=== PATIENT | female | born 1965 | race Native Hawaiian/Other Pacific Islander ===

== ENCOUNTER → 2021-02-17 13:38 | Outpatient (CLI) | payer OTHER, SELFPAY ==
--- NOTE | 2021-02-17 | PATH_ITS ---
Note [facility] Accession Number: [id number] TESTS RESULT FLAG UNITS REF RANGE LAB Clinician Provided Cytology Information No. of containers..00 Previously Prepared Cytology Slide 35 Unknown Storage/container code(s) 01 L UPPER #3 THYROID DIAGNOSIS: 01 LEFT UPPER #3 THYROID NODULE, FINE NEEDLE ASPIRATION. INCONCLUSIVE. BETHESDA CATEGORY III. ATYPIA OF UNDETERMINED SIGNIFICANCE, SEE COMMENT. COMMENT: EXAMINATION OF THE SMEARS REVEALS A MILDLY CELLULAR ASPIRATE, COMPOSED OF COLLOID, MACROPHAGES AND BENIGN FOLLICULAR GROUPS WITH FOCAL HURTHLE CELL CHANGES. IN ADDITION, THERE ARE RARE GROUPS WHERE MILD NUCLEAR ENLARGEMENT, OVERLAPPING, PALLOR AND RARE NUCLEAR MEMBRANE IRREGULARITIES (GROOVES) ARE NOTED. INTRANUCLEAR PSEUDOINCLUSIONS ARE NOT SEEN. THE RISK OF MALIGNANCY IN THE BETHESDA CATEGORY III IS 5-15%. RE-ASPIRATION IS RECOMMENDED. ADDITIONAL MOLECULAR TESTING CAN BE PERFORMED ON THE SUBMITTED RNA VIAL, UPON REQUEST. Pathologist ICD10: 01 E04.2 01 Jarrod Suarez MD, Pathologist NPI- [id number] Faizan Graham, Shanker Out ([facility]) 01 30 CC, COLORLESS, CLEAR Also received 1 RNA vial, 5 quick-stained, 5 alcohol fixed slides, /[facility] 02/18/2021 1046 [facility] FLAG LEGEND: L-Low Normal,H-High Normal,LL-Alert Low,HH-Alert High <-Panic Low,>-Panic High,A-Abnormal,AA-Critical Abnormal Performed at: 01 =Z [facility]ending sale to [facility] [address] [place] [address], [place] [address] Benny Walker MD, Performed at: 01 [facility] [address] [place] [address], [place], [place] [id number] MD Benny Walker MD Phone: [phone]
--- NOTE | 2021-02-17 | PATH_ITS ---
Note [facility] Accession Number: [id number] TESTS RESULT FLAG UNITS REF RANGE LAB Clinician Provided Cytology Information No. of containers..00 Previously Prepared Cytology Slide 35 Unknown Storage/container code(s) 01 L LOWER #4 THYROID DIAGNOSIS: 01 LEFT LOWER #4 THYROID NODULE, FINE NEEDLE ASPIRATION. NEGATIVE FOR MALIGNANT CELLS. ADEQUATE FOR EVALUATION. FOLLICULAR GROUPS ARE PRESENT. BENIGN FOLLICULAR (GOITEROUS) NODULE (BETHESDA CATEGORY II), SEE COMMENT. COMMENT: MICROSCOPIC EXAMINATION REVEALS A MILDLY CELLULAR ASPIRATE, COMPOSED OF ABUNDANT COLLOID AND FOLLICULAR GROUPS WITHOUT SIGNIFICANT CYTOLOGIC OR ARCHITECTURAL ATYPIA. THESE FINDINGS SUPPORT A BENIGN FOLLICULAR (GOITEROUS) NODULE. CORRELATION WITH CLINICAL AND RADIOGRAPHIC FINDINGS IS RECOMMENDED. ACCORDING TO THE BETHESDA REPORTING SYSTEM FOR THYROID CYTOPATHOLOGY, THE RISK OF MALIGNANCY IN THE CATEGORY BENIGN-CATEGORY II IS 0-3%; THEREFORE RECOMMEND CONTINUED ULTRASOUND SURVEILLANCE WITH REPEAT FNA IF THE NODULE SIGNIFICANTLY INCREASES IN SIZE. Pathologist ICD10: 01 E04.2 01 Jarrod Suarez MD, Pathologist NPI- [id number] Philippe Gooden, Clerk Secretary ([facility]) 01 30 CC, PINK, CLEAR Also received 1 RNA vial, 5 quick-stained, 5 alcohol fixed slides. /[facility] 02/18/2021 1048 [facility] FLAG LEGEND: L-Low Normal,H-High Normal,LL-Alert Low,HH-Alert High <-Panic Low,>-Panic High,A-Abnormal,AA-Critical Abnormal Performed at: 01 =Z [facility] [address] [place] [address], [place] [address] Benny Walker MD, Performed at: 01 [facility] [address] [address], [place], [place] [id number] MD Benny Walker MD Phone: [phone]
--- NOTE | 2021-02-17 13:42 | DI.US.S_ITS ---
PROCEDURE: US FINE NEEDLE ASPIRATION INDICATIONS: LEFT NODULES X 2 TECHNIQUE: The indications, alternatives, benefits, risks, and complications of the procedure were explained to the patient. Written informed consent was obtained and placed in the chart. The area of interest was examined sonographically and a site was chosen for ultrasound guided percutaneous sampling. The skin was prepared and draped in the usual fashion, and anesthetized with 1% lidocaine infiltrated from the skin down to the lesion. Multiple passes were then performed, with contents emptied into an appropriate pathology specimen container. A bandage was applied to the area of access at completion of the study. COMPARISON: [facility], , US SOFT TISSUE HEAD OR NECK, 12/20/2020, 13:09. FINDINGS: Location(s) of lesion(s) sampled: Left thyroid lobe, 2 nodules, 3. And 4. From prior study. [place]: 25 gauge hypodermic needles. Number of passes: Seven passes for each nodule, including aspiration technique during the final needle localization of each nodule. Medications: 1% lidocaine for local anaesthesia. Complications: None. IMPRESSION: Successful ultrasound-guided left thyroid 2 nodules fine needle aspiration, with cytology results pending. Dictated by: Mike Morales M.D. on 02/17/2021 at 15:24 Approved by: Mike Morales M.D. on 02/17/2021 at 15:26
== END ==
PROVIDERS: PCP Physician Assistant Medical; Referring Provider Physician Assistant Medical; Visit Provider Physician Assistant Medical
DX: E04.2 Nontoxic multinodular goiter (principal)
CPT/HCPCS: 10005